=== PATIENT | male | born 1990 | race Caucasian/White ===

== ENCOUNTER 2016-11-10 03:30 | Emergency (ER) | payer OTHER ==
[~2016-11-10] VITALS: Ht 175.3 cm; Wt 84.8 kg
[~2016-11-10 03:30] MED LIST: ADDERALL XR 2525 MG PO; ALPRAZOLAM1 MG PO; AMBIEN10 MG PO; AMOXICILLIN500 M1 PO; ATARAX10 MG PO; CATAPRES0.1 MG PO; CLEOCIN300 MG PO; COGENTIN0.5 MG PO; COGENTIN1 MG PO; HALDOL2 MG PO; KLONOPIN2 MG PO; MOTRIN600 MG PO; MOTRIN800 MG PO; NAPROSYN500 MG PO; NAPROXEN500 MG PO; NOHOMEMEDS; PEN-VEE K,VEET250 MG PO; PEN-VEE K,VEET500 MG PO; PENICILLIN V P500 MG; PERCOCET 5-3251 EACH PO; PERCOCET 5/31 TABLET PO; PERIDEX1 ML MM; PROZAC10 MG PO; REMERON30 M2 PO; RISPERDAL1 MG PO; ROXICODONE5 MG PO; SKELAXIN400 M1 PO; TRAMADOL HCL50 MG PO; TRAZODONE HCL50 MG PO; ULTRAM50 MG PO; VENTOLIN HFA18 GM IH; XANAX0.5 MG PO; ZOLOFT100 MG PO
[2016-11-10] MEDS ORDERED: PEN-VEE K,VEET500 MG PO (03:59)
[2016-11-10] MEDS ORDERED: ULTRAM50 MG PO (03:59)
[2016-11-10 04:09] VITALS: BP 120/67
== END 2016-11-10 05:10 | disposition home or self-care (01) ==
LOC: EME 03:30
DX: K04.7 Periapical abscess without sinus (principal); K02.9 Dental caries, unspecified
CPT/HCPCS: 99281; 99283

== ENCOUNTER 2017-01-17 22:09 | Inpatient (IN) | payer OTHER ==
[~2017-01-17] VITALS: Ht 175.3 cm; Wt 78.2 kg
[2017-01-17 22:50] LABS: MCH 29.7 PG (29.0-34.0); MCV 87.4 FL (86-99); MEAN PLAT.VOLUME 9.8 uM^3 (9.0-12.4); PLATELET COUNT 258 K/uL (156-360); RBC DIS.WIDTH-CV 12.5 % (11.8-14.6); RED BLOOD COUNT 4.92 M/uL (4.00-5.50); WHITE BLOOD COUNT 11.9 K/uL (4.1-10.2)
[2017-01-17 23:06] LABS: CHLORIDE 103 mEq/L (99-109); POTASSIUM 3.5 mEq/L (3.7-5.4); SODIUM 139 mEq/L (136-147)
[2017-01-17 23:07] LABS: AMPHETAMINE NEGATIVE (500 ng/mL); BARBITURATES NEGATIVE (200 ng/mL); BENZODIAZEPINES NEGATIVE (150 ng/mL); COCAINE PRESUMPTIVE POSITIVE (150 ng/mL); METHADONE PRESUMPTIVE POSITIVE (200 ng/mL); METHAMPHETAMINE NEGATIVE (500 ng/mL); OPIATES (MORPHINE) PRESUMPTIVE POSITIVE (100 ng/mL); OXYCODONE NEGATIVE (100 ng/mL); PHENCYCLIDINE NEGATIVE (25 ng/mL); PROPOXYPHENE NEGATIVE (300 ng/mL); THC CANNABINOIDS PRESUMPTIVE POSITIVE (50 ng/mL); TRICYCLIC ANTIDEPRESSANTS NEGATIVE (300 ng/mL)
[2017-01-17 23:07] LABS: GLUCOSE 109 mg/dL (70-99)
[2017-01-17 23:08] LABS: ADD MEDTOX COMMENT Y; INTERNAL CONTROLS VALID? YES
[2017-01-17 23:09] LABS: ANION GAP 11 MEQ/L (2-14)
[2017-01-17 23:10] LABS: SERUM ETHYL ALCOHOL < 10 mg/dL
[2017-01-17 23:11] LABS: GFR ESTIMATE (CALCULATED) > 59 mL/min/
[2017-01-17 23:12] LABS: UREA NITROGEN (BUN) 12 mg/dL (9-23)
[2017-01-18 01:14] LABS: SALICYLATE < 5.0 MG/DL (15-30)
[2017-01-18] MEDS ORDERED: KLONOPIN0.5 M1 PO (08:58)
[2017-01-18] MEDS ORDERED: HALDOL2 MG PO (09:01)
[2017-01-18] MEDS ORDERED: RISPERDAL1 MG PO (09:02)
[2017-01-18] MEDS ORDERED: AMBIEN10 MG PO (09:03)
[2017-01-18] MEDS ORDERED: REMERON30 M2 PO (09:04)
[2017-01-18] MEDS ORDERED: NICODERM CQ1 EAC2 TP (09:08)
[2017-01-18 16:13] VITALS: BP 130/71
[2017-01-19 08:04] VITALS: BP 116/62
[2017-01-19 15:29] VITALS: BP 112/71
[2017-01-20 08:23] VITALS: BP 116/66
[2017-01-20] MEDS ORDERED: RISPERDAL1 MG PO (11:01)
[2017-01-20] MEDS ORDERED: REMERON15 M2 PO (11:10)
== END 2017-01-20 11:58 | disposition home or self-care (01) | DRG 885 ==
LOC: EME 22:09 → 1WEST 01-18 03:33 → EDOF 01-18 03:33 → 1WEST 01-18 08:16
DX: F33.1 Major depressive disorder, recurrent, moderate (principal); F11.20 Opioid dependence, uncomplicated; F14.20 Cocaine dependence, uncomplicated; R45.851 Suicidal ideations; F12.10 Cannabis abuse, uncomplicated; F41.9 Anxiety disorder, unspecified; F95.2 Tourette's disorder
CPT/HCPCS: 80048; 84999; 85027; 90839; 99281; 99285; G0480; Q0169; Q0177

== ENCOUNTER 2017-03-23 16:29 | Emergency (ER) | payer OTHER ==
[~2017-03-23] VITALS: Ht 175.3 cm; Wt 77.4 kg
[~2017-03-23 16:29] MED LIST changes: +KLONOPIN0.5 M1 PO; +NICODERM CQ1 EAC2 TP; +REMERON15 M2 PO
[2017-03-23 16:34] VITALS: BP 103/69
[2017-03-23] MEDS ORDERED: MEDROL DOSEPAK4 MG PO (19:25)
[2017-03-23] MEDS ORDERED: ZITHROMAX Z-PA250 MG PO (19:25)
[2017-03-23] MEDS ORDERED: ROBITUSSIN AC,T10 ML PO (19:25)
[2017-03-23] MEDS ORDERED: VENTOLIN HFA18 GM IH (19:25)
== END 2017-03-23 19:51 | disposition home or self-care (01) ==
LOC: EME 16:29
DX: J20.9 Acute bronchitis, unspecified (principal); F17.200 Nicotine dependence, unspecified, uncomplicated
CPT/HCPCS: 71020; 94640; 99281; 99284

== ENCOUNTER 2017-07-06 18:17 | Inpatient (IN) | payer OTHER ==
[~2017-07-06] VITALS: Ht 175.3 cm; Wt 76.7 kg
[~2017-07-06 18:17] MED LIST changes: +MEDROL DOSEPAK4 MG PO; +ROBITUSSIN AC,T10 ML PO; +ZITHROMAX Z-PA250 MG PO
[2017-07-06 19:02] LABS: EOSINOPHIL (%) 3.1 % (0-5); EOSINOPHIL COUNT 0.2 K/uL (0-0.3); HEMATOCRIT 42.3 % (38.0-50.0); IMMATURE GRANULOCYTE (%) 0.3 % (0.0-0.7); INSTRUMENT ABS NEUTROPHIL CT 4.9 K/uL; LYMPHOCYTE COUNT 1.8 K/uL (1.0-2.8); MCH 28.5 PG (29.0-34.0); MCHC 33.1 G/DL (30.0-36.0); MEAN PLAT.VOLUME 9.7 uM^3 (9.0-12.4); MONOCYTE (%) 10.4 % (3-12); MONOCYTE COUNT 0.8 K/uL (0-0.8); NEUTROPHIL (%) 63.5 % (45-76); NEUTROPHIL COUNT 4.9 K/uL (1.8-6.4); PLATELET COUNT 188 K/uL (156-360); RBC DIS.WIDTH-CV 13.8 % (11.8-14.6); RBC DIS.WIDTH-SD 43.7 % (39-53); RED BLOOD COUNT 4.92 M/uL (4.00-5.50); WHITE BLOOD COUNT 7.8 K/uL (4.1-10.2)
[2017-07-06 19:10] LABS: CHLORIDE 98 mEq/L (99-109); POTASSIUM 3.6 mEq/L (3.7-5.4); SODIUM 136 mEq/L (136-147)
[2017-07-06 19:11] LABS: GLUCOSE 124 mg/dL (70-99)
[2017-07-06 19:13] LABS: ANION GAP 9 MEQ/L (2-14)
[2017-07-06 19:15] LABS: GFR ESTIMATE (CALCULATED) > 59 mL/min/
[2017-07-06 19:16] LABS: UREA NITROGEN (BUN) 14 mg/dL (9-23)
[2017-07-06] MEDS ORDERED: HALDOL2 MG PO (19:19)
[2017-07-06] MEDS ORDERED: DOXEPIN HCL50 MG PO (19:19)
[2017-07-06] MEDS ORDERED: PROZAC10 MG PO (19:19)
[2017-07-06] MEDS ORDERED: MIRTAZAPINE30 MG PO (22:05)
[2017-07-06] MEDS ORDERED: QUETIAPINE FUMA50 MG PO (22:05)
[2017-07-06] MEDS ORDERED: RISPERIDONE1 MG PO (22:07)
[2017-07-06] MEDS ORDERED: VENTOLIN HFA18 GM IH (22:09)
[2017-07-06] MEDS ORDERED: ADVIL200 MG PO (22:13)
[2017-07-06 23:43] VITALS: BP 111/63
[2017-07-07 03:44] VITALS: BP 114/68
[2017-07-07 05:10] LABS: HEMATOCRIT 37.3 % (38.0-50.0); MCH 29.1 PG (29.0-34.0); MCHC 33.8 G/DL (30.0-36.0); MCV 86.1 FL (86-99); MEAN PLAT.VOLUME 9.9 uM^3 (9.0-12.4); PLATELET COUNT 163 K/uL (156-360); RBC DIS.WIDTH-CV 14.1 % (11.8-14.6); RBC DIS.WIDTH-SD 44.8 % (39-53); RED BLOOD COUNT 4.33 M/uL (4.00-5.50); WHITE BLOOD COUNT 6.5 K/uL (4.1-10.2)
[2017-07-07 05:40] LABS: ANION GAP 8 MEQ/L (2-14); CHLORIDE 103 MEQ/L (99-109); GFR ESTIMATE (CALCULATED) > 59 mL/min/; GLUCOSE 116 mg/dL (70-99); POTASSIUM 3.4 MEQ/L (3.7-5.4); SAMPLE HEMOLYSIS CHECK 0; SAMPLE ICTERIC CHECK 0; SAMPLE LIPEMIA CHECK 0; SODIUM 137 MEQ/L (136-147); UREA NITROGEN (BUN) 12 mg/dL (9-23)
[2017-07-07 08:21] VITALS: BP 104/52
[2017-07-07 12:02] LABS: HIV INDEX 0.14; HIV-1/2 AB/AG COMBO Nonreactive
[2017-07-07 14:12] LABS: ANTI-HEPATITIS B CORE (TOTAL) Nonreactive; HBCT INDEX 0.14; HBSG INDEX 0.17
[2017-07-07 14:13] LABS: AHBS INDEX 2.94; HEPATITIS B SURFACE ANTIBODY Nonreactive; HPCA INDEX 14.35
[2017-07-07 17:10] LABS: ADD MIUA? NO; BILIRUBIN NEGATIVE; BLOOD NEGATIVE; COLOR YELLOW ((YELLOW)); GLUCOSE (STRIP) NEGATIVE; KETONES NEGATIVE; LEUKOCYTES NEGATIVE; NITRITE NEGATIVE; PROTEIN (STRIP) NEGATIVE; SPECIFIC GRAVITY 1.009 (1.000-1.030); UCUL ADDED? NO
[2017-07-07 19:18] VITALS: BP 120/62
[2017-07-07 21:27] LABS: GFR ESTIMATE (CALCULATED) > 59 mL/min/
[2017-07-07 23:56] VITALS: BP 128/60
[2017-07-08 04:59] VITALS: BP 116/63
[2017-07-08 05:22] LABS: POTASSIUM 3.7 mEq/L (3.7-5.4); SODIUM 142 mEq/L (136-147)
[2017-07-08 05:24] LABS: CHLORIDE 108 mEq/L (99-109); GLUCOSE 78 mg/dL (70-99)
[2017-07-08 05:26] LABS: ANION GAP 8 MEQ/L (2-14)
[2017-07-08 05:28] LABS: GFR ESTIMATE (CALCULATED) > 59 mL/min/
[2017-07-08 05:29] LABS: UREA NITROGEN (BUN) 9 mg/dL (9-23)
[2017-07-08 05:38] LABS: HEMATOCRIT 37.3 % (38.0-50.0); MCH 28.6 PG (29.0-34.0); MCHC 33.5 G/DL (30.0-36.0); MCV 85.4 FL (86-99); MEAN PLAT.VOLUME 10.4 uM^3 (9.0-12.4); PLATELET COUNT 183 K/uL (156-360); RBC DIS.WIDTH-CV 13.7 % (11.8-14.6); RBC DIS.WIDTH-SD 43.1 % (39-53); RED BLOOD COUNT 4.37 M/uL (4.00-5.50)
[2017-07-08 06:45] LABS: VANCOMYCIN, TROUGH 4.9 MCG/ML (10-20)
[2017-07-08 07:55] VITALS: BP 125/62
[2017-07-08 12:12] VITALS: BP 132/69
== END 2017-07-08 14:30 | disposition left against medical advice (07) | DRG 603 ==
LOC: EME 18:17 → 4EAST 22:09 → EDOF 22:09 → ENRESERV 22:14 → 4EAST 23:37
PROVIDERS: Emergency Medicine; Hospitalist; Pediatrics
DX: L03.115 Cellulitis of right lower limb (principal); F33.9 Major depressive disorder, recurrent, unspecified; F11.20 Opioid dependence, uncomplicated; J98.01 Acute bronchospasm; E87.6 Hypokalemia; F17.210 Nicotine dependence, cigarettes, uncomplicated; F12.10 Cannabis abuse, uncomplicated; F19.10 Other psychoactive substance abuse, uncomplicated; B19.20 Unspecified viral hepatitis C without hepatic coma; F15.10 Other stimulant abuse, uncomplicated; F95.2 Tourette's disorder; R01.1 Cardiac murmur, unspecified; K08.9 Disorder of teeth and supporting structures, unspecified; Z91.19 Patient's noncompliance with other medical treatment and regimen; Z81.8 Family history of other mental and behavioral disorders; Z88.6 Allergy status to analgesic agent
CPT/HCPCS: 80048; 80202; 81003; 82565; 83605; 85025; 85027; 86703; 86704; 86706; 86803; 87040; 87340; 93971; 99202; 99281; 99285; J0690; J0696; J1650; J2543; J3370; J7030; J7050

== ENCOUNTER 2017-12-02 11:38 | Emergency (ER) | payer OTHER ==
[~2017-12-02] VITALS: Ht 175.3 cm; Wt 75.0 kg
[~2017-12-02 11:38] MED LIST changes: +ADVIL200 MG PO; +DOXEPIN HCL50 MG PO; +MIRTAZAPINE30 MG PO; +QUETIAPINE FUMA50 MG PO; +RISPERIDONE1 MG PO
[2017-12-02] MEDS ORDERED: KLONOPIN0.5 M1 PO (11:46)
[2017-12-02] MEDS ORDERED: CLONIDINE HCL0.1 MG PO (11:47)
[2017-12-02] MEDS ORDERED: RISPERIDONE0.5 MG PO (11:47)
[2017-12-02 12:29] LABS: BASOPHIL (%) 0.5 % (0-1); EOSINOPHIL (%) 5.3 % (0-5); EOSINOPHIL COUNT 0.3 K/uL (0-0.3); HEMATOCRIT 38.8 % (38.0-50.0); HEMOGLOBIN 13.4 G/DL (12.5-16.6); IMMATURE GRANULOCYTE (%) 0.2 % (0.0-0.7); LYMPHOCYTE COUNT 2.6 K/uL (1.0-2.8); MCH 29.1 PG (29.0-34.0); MCHC 34.5 G/DL (30.0-36.0); MCV 84.3 FL (86-99); MONOCYTE (%) 9.6 % (3-12); MONOCYTE COUNT 0.6 K/uL (0-0.8); NEUTROPHIL (%) 43.4 % (45-76); NEUTROPHIL COUNT 2.7 K/uL (1.8-6.4); PLATELET COUNT 213 K/uL (156-360); RBC DIS.WIDTH-CV 13.2 % (11.8-14.6); RBC DIS.WIDTH-SD 40.8 % (39-53); WHITE BLOOD COUNT 6.3 K/uL (4.1-10.2)
[2017-12-02 12:37] LABS: CHLORIDE 106 mEq/L (99-109); POTASSIUM 3.8 mEq/L (3.7-5.4); SODIUM 139 mEq/L (136-147)
[2017-12-02 12:39] LABS: GLUCOSE 116 mg/dL (70-99)
[2017-12-02 12:43] LABS: CREATININE 0.9 mg/dL (0.6-1.3); GFR ESTIMATE (CALCULATED) > 59 mL/min/ (58.99-99999)
[2017-12-02 12:44] LABS: UREA NITROGEN (BUN) 17 mg/dL (9-23)
[2017-12-02 14:34] VITALS: BP 100/72
== END 2017-12-02 14:37 | disposition home or self-care (01) ==
LOC: EME 11:38
PROVIDERS: Emergency Medicine
DX: R42 Dizziness and giddiness (principal); I10 Essential (primary) hypertension; J45.909 Unspecified asthma, uncomplicated; F17.200 Nicotine dependence, unspecified, uncomplicated; F41.9 Anxiety disorder, unspecified; F32.9 Major depressive disorder, single episode, unspecified; Z88.6 Allergy status to analgesic agent
CPT/HCPCS: 80048; 85025; 93005; 99281; 99284

== ENCOUNTER 2018-02-09 19:27 | Emergency (ER) | payer OTHER ==
[~2018-02-09] VITALS: Ht 175.3 cm; Wt 81.4 kg
[~2018-02-09 19:27] MED LIST changes: +CLONIDINE HCL0.1 MG PO; +RISPERIDONE0.5 MG PO
[2018-02-09 22:02] LABS: BASOPHIL (%) 0.3 % (0-1); EOSINOPHIL (%) 1.2 % (0-5); EOSINOPHIL COUNT 0.2 K/uL (0-0.3); HEMATOCRIT 45.3 % (38.0-50.0); HEMOGLOBIN 15.2 G/DL (12.5-16.6); IMMATURE GRANULOCYTE (%) 0.3 % (0.0-0.7); LYMPHOCYTE (%) 15.9 % (15-42); LYMPHOCYTE COUNT 2.3 K/uL (1.0-2.8); MCH 28.8 PG (29.0-34.0); MCHC 33.6 G/DL (30.0-36.0); MCV 85.8 FL (86-99); MONOCYTE (%) 6.4 % (3-12); MONOCYTE COUNT 0.9 K/uL (0-0.8); NEUTROPHIL (%) 75.9 % (45-76); NEUTROPHIL COUNT 11.1 K/uL (1.8-6.4); PLATELET COUNT 295 K/uL (156-360); RBC DIS.WIDTH-CV 13.5 % (11.8-14.6); RBC DIS.WIDTH-SD 42.4 % (39-53); RED BLOOD COUNT 5.28 M/uL (4.00-5.50); WHITE BLOOD COUNT 14.6 K/uL (4.1-10.2)
[2018-02-09 22:17] LABS: CHLORIDE 102 mEq/L (99-109); POTASSIUM 3.7 mEq/L (3.7-5.4); SODIUM 138 mEq/L (136-147)
[2018-02-09 22:19] LABS: GLUCOSE 81 mg/dL (70-99)
[2018-02-09 22:23] LABS: CREATININE 0.7 mg/dL (0.6-1.3); GFR ESTIMATE (CALCULATED) > 59 mL/min/ (58.99-99999)
[2018-02-09 22:24] LABS: UREA NITROGEN (BUN) 9 mg/dL (9-23)
[2018-02-09] MEDS ORDERED: AUGMENTIN875 MG PO (23:08)
[2018-02-09] MEDS ORDERED: INDOCIN50 MG PO (23:08)
[2018-02-09 23:20] VITALS: BP 127/70
== END 2018-02-09 23:21 | disposition home or self-care (01) ==
LOC: EME 19:27
PROVIDERS: Physician Assistant
DX: K04.7 Periapical abscess without sinus (principal); K02.9 Dental caries, unspecified; F11.20 Opioid dependence, uncomplicated; J45.909 Unspecified asthma, uncomplicated; F95.2 Tourette's disorder; F41.9 Anxiety disorder, unspecified; F32.9 Major depressive disorder, single episode, unspecified; F17.200 Nicotine dependence, unspecified, uncomplicated; Z88.6 Allergy status to analgesic agent
CPT/HCPCS: 80048; 83605; 85025; 87040; 99281; 99283; J1885; J7030